=== PATIENT | female | born 1965 | race Caucasian/White ===

== ENCOUNTER → 2016-10-28 | Day surgery (SDC) | payer BC ==
[~2016-10-28] VITALS: Ht 154.9 cm; Wt 64.5 kg
[~2016-10-28] MED LIST: ASPI81TA81; ATOR20TA15 PO; BUPIVACAINE HCL PF 0.5% 30 ML VIAL ONE; CHLORHEXIDINE GLUCONATE 2 % 1 PACK (2 CLOTHS) TOPICAL PRN; DEXT 5%-NACL 0.45% 1000 ML INJ 1,000 ML IV SCH; GABA100C4 PO; IBUP800T23 PO; INSULIN HUMAN REGULAR 1,000 UNITS/10 ML VIAL SQ PRN; LACTATED RINGER'S 1000 ML IV PRN; LEVO.1 PO; METOPROLOL TARTRATE 25 MG TAB PO PRN; NOVORP2 SQ; ONDANSETRON HCL 4 MG/2 ML VIAL IV PUSH ONE; PROPOFOL 200 MG/20 ML AMP IV ONE; SODIUM CHLORID 0.9% 500 ML IV PRN; SODIUM CHLORIDE 0.9% FLUSH 5 ML FLUSH IVF PRN; SODIUM CHLORIDE 0.9% FLUSH 5 ML FLUSH IVF SCH; ceFAZolin 2 GM PREMIX 50 ML IV SCH; fentaNYL CITRATE 250 MCG/5 ML AMP ONE
[2016-10-28 06:50] VITALS: BP 151/78; PULSE 60; RESP 16; TEMP 97.9; O2SAT 100
[2016-10-28] MEDS: POVIDONE IODINE 5% (ANTISEPSIS KIT) 4 APPLICATIONS EACH NARE PRN ×2 (07:25→08:51)
[2016-10-28 07:30] LABS: HEMATOCRIT 42.8 % (35.0-46.0); MEAN CELL VOLUME 89.4 FL (80.0-100.0); MEAN CORPUSCULAR HEMOGLOBIN 29.2 PG (27.0-34.0); MEAN CORPUSCULAR HGB CONC 32.7 % (32.0-36.0); PLATELET COUNT 340 TH/MM3 (150-450); RED BLOOD COUNT 4.78 MIL/MM3 (4.00-5.30); RED CELL DISTRIBUTION WIDTH 12.8 % (11.6-17.2); REVIEW FLAG FINAL; WHITE BLOOD COUNT 8.9 TH/MM3 (4.0-11.0)
--- NOTE | 2016-10-28 07:52 | HP.UPD ---
H&P Update Date: Oct 28, 2016 Note The Pre-Admit History and Physical Examination regarding the above named patient was reviewed (including, but not limited to, vital signs, medications, allergies, co-morbid conditions), and upon re-examination it is noted that: Indicated with "X" x - the patient's condition has not significantly changed since the last examination. [] - the patient's condition has changed since the last examination. Changes: lOya Juan MD Oct 28, 2016 07:52
--- NOTE | 2016-10-28 07:59 | EKG ---
Date Performed: 10/28/2016 Time Performed: 07:22:08 PTAGE: 51 years EKG: SINUS BRADYCARDIA LOW QRS VOLTAGE IN PRECORDIAL LEADS BORDERLINE ECG NO PREVIOUS TRACING DOCTOR: Matt Oswald Interpretating Date/Time 10/28/2016 07:58:43
--- NOTE | 2016-10-28 09:19 | HHI.PR ---
Immediate Post Op Note Procedure Date: Oct 28, 2016 Pre Op Diagnosis: (1) Carpal tunnel syndrome Post Op Diagnosis: (1) Carpal tunnel syndrome Surgeon: Olya Juan Guide Dog Trainer(s): None. Procedure: Open release of the left carpal tunnel. Anesthesia: General Drains: None Tourniquet time (min at mmHg) 18 minutes at 220 mm Hg. Patient to: PACU Patient Condition: Good Date/Time of Procedure: SEE SURGICAL CARE RECORD Olya Juan MD Oct 28, 2016 09:19
[2016-10-28 10:20] VITALS: BP 138/71; PULSE 68; RESP 16; TEMP 97.1; O2SAT 99
--- NOTE | 2016-10-29 23:03 | MP ---
cc: ANGELO FORD MD DATE OF SURGERY 10/28/2016 PREOPERATIVE DIAGNOSIS Left carpal tunnel syndrome. POSTOPERATIVE DIAGNOSIS Left carpal tunnel syndrome PROCEDURE Open release of the left carpal tunnel. ANESTHESIA General SURGEON Dr. Arvin Ford INDICATIONS A 51-year-old female with severe left carpal tunnel syndrome. FINDINGS The patient did have a very tight tunnel. At the completion of the procedure, the tunnel was released and the nerve was mobilized from the roof of the carpal tunnel. Tourniquet time was 18 minutes. PROCEDURE IN DETAIL The patient was seen preoperatively where the site and side were identified and marked. The patient was then taken to the operating room, placed in a supine position. Her identity was checked against the arm band and the consent form, site and side confirmed, time-out called prior to beginning the procedure. The left upper extremity was prepped with Hibiclens and draped in the usual sterile fashion. The area to be incised was outlined with a marking pen as a longitudinal incision just at the ulnar side of the midline. Bupivacaine 0.5% plain was used to make a median nerve block and then the hand and upper extremity were exsanguinated and the tourniquet inflated to 220 mmHg. A #15 blade was used to make the incision down through the skin down through the subcutaneous tissue down to the palmar fascia. Distally a small hole was poked in the palmar fascia and using the ulnar artery as a guide Guyon's canal was released. The ulnar artery and nerve were retracted ulnarly. The median nerve retracted medially and, using the flexor tendon to the ring finger as a guide, the transverse carpal ligament was divided. Once the forearm fascia was reached, the scissor was kept in a slightly open position and using the push technique released for several centimeters into the distal forearm. The median nerve was then carefully from the roof of the tunnel and an epidurolysis was performed under loupe magnification. The wound was then copiously irrigated with saline and injected and additional bupivacaine and closed with running 4-0 nylon suture. The tourniquet was released after 18 minutes of tourniquet time. Pressure was applied. After several minutes, there was no evidence of any oozing. A dressing was applied using povidone-iodine ointment, Adaptic, Telfa, 4x4s and hand wrap. There was no tape touching the skin. The patient was then taken from the operating room to the recovery room in satisfactory condition having tolerated the procedure well. Postoperative instructions include keeping the arm elevated, keeping it clean and dry and returning in several days for follow up. MD CEASAR Vences/ /9:19 AM /10:49 PM
== END | disposition home or self-care (01) ==
LOC: PHSDC 06:14
PROVIDERS: ATTEND Specialist
DX: G56.02 Carpal tunnel syndrome, left upper limb (principal); I10 Essential (primary) hypertension; E10.9 Type 1 diabetes mellitus without complications; E78.5 Hyperlipidemia, unspecified; Z79.4 Long term (current) use of insulin; Z01.810 Encounter for preprocedural cardiovascular examination; Z01.818 Encounter for other preprocedural examination
CPT/HCPCS: 01810; 36415; 64721; 82948; 85027; 93005; J0690; J2405; J3010; J7120

== ENCOUNTER → 2016-11-11 | Day surgery (SDC) | payer BC ==
[~2016-11-11] VITALS: Ht 154.9 cm; Wt 66.0 kg
[~2016-11-11] MED LIST changes: +CEPH-460 PO; +DIOV40TA PO; +FAMOTIDINE 20 MG/2 ML VIAL ONE; +MIDAZOLAM HCL 2 MG/2 ML VIAL ONE; +OMEG300C5 PO; +POVIDONE IODINE 10% OINT 1 PACKET TOPICAL ONE; +POVIDONE IODINE 5% (ANTISEPSIS KIT) 4 APPLICATIONS EACH NARE PRN; +ePHEDrine/NS 25 MG/5 ML SYR IV ONE; -fentaNYL CITRATE 250 MCG/5 ML AMP ONE
[2016-11-11 08:15] VITALS: BP 152/80; PULSE 59; RESP 16; TEMP 97.7; O2SAT 99
--- NOTE | 2016-11-11 10:01 | HP.UPD ---
H&P Update Date: Nov 11, 2016 Note The Pre-Admit History and Physical Examination regarding the above named patient was reviewed (including, but not limited to, vital signs, medications, allergies, co-morbid conditions), and upon re-examination it is noted that: Indicated with "X" x - the patient's condition has not significantly changed since the last examination. [] - the patient's condition has changed since the last examination. Changes: Olya Juan MD Nov 11, 2016 10:01
[2016-11-11 11:35] VITALS: PULSE 82
--- NOTE | 2016-11-11 11:51 | HHI.PR ---
Immediate Post Op Note Procedure Date: Nov 11, 2016 Pre Op Diagnosis: (1) De Quervain's tenosynovitis, right (2) Trigger finger, right ring finger Post Op Diagnosis: (1) De Quervain's tenosynovitis, right (2) Trigger finger, right ring finger Surgeon: Olya Juan Academic Guidance Specialist(s): None Procedure: Release of the right first dorsal compartment. Release of the right ring trigger finger. Anesthesia: General Drains: None Tourniquet time (min at mmHg) 29 minutes at 220 mm Hg. Patient to: PACU Patient Condition: Good Date/Time of Procedure: SEE SURGICAL CARE RECORD Olya Juan MD Nov 11, 2016 11:51
[2016-11-11 12:15] VITALS: TEMP 97.9
[2016-11-11 12:50] VITALS: BP 144/66; PULSE 76; RESP 16; O2SAT 99
--- NOTE | 2016-11-13 06:48 | MP ---
cc: ANGELO FORD M.D. DATE OF SURGERY: 11/11/2016 PREOPERATIVE DIAGNOSIS 1. De Quervain's tenosynovitis of the right wrist. 2. Trigger finger of the right ring finger. POSTOPERATIVE DIAGNOSIS: 1. De Quervain's tenosynovitis of the right wrist. 2. Trigger finger of the right ring finger. PROCEDURE: 1. Release of the right first dorsal compartment. 2. Release of the right ring trigger finger. 3. Removal of sutures from the left hand. ANESTHESIA: General. SURGEON: Dr. Ford. INDICATIONS 51-year-old female with history of de Quervain's tenosynovitis which did not respond to nonoperative treatment. In addition the patient had a ring finger also which did not respond to nonoperative treatment. FINDINGS The first dorsal compartment was thickened approximately four times normal thickness. There was a separate tunnel for the extensor pollicis brevis. The ring finger, at the completion of the procedure, had full passive range of motion. TOURNIQUET TIME: 29 minutes. DESCRIPTION OF PROCEDURE: The patient was seen preoperatively where the sites and side were identified and marked. The patient was then taken to the operating room, placed in supine position. Her identity was checked against the arm band and the consent form, site and side confirmed, time-out called prior to beginning the procedure. The right upper extremity was prepped with Hibiclens and draped in the usual sterile fashion. The areas to be incised were outlined with a marking pen and a transverse incision 1.5 cm in length over the first dorsal compartment. In addition an oblique incision 1.5 cm in length was designed over the A1 minnie. The arm was exsanguinated and tourniquet inflated to 220 mmHg. A #15 blade was used to make an incision over the first dorsal compartment down to the skin, down to the subcutaneous tissue. Using a spread technique, superficial vessels were identified and retracted and under loupe magnification the first dorsal compartment was released by using the tendons of the first dorsal compartment as a guide. Once the first dorsal compartment was completely released, the tunnel was explored and a second tunnel was found for the extensor pollicis brevis. This was opened. The patient then had excellent range of motion without any encumbrance of the tendons. The wound was copiously irrigated with saline and closed with 4-0 Vicryl and then Dermabond to the skin. Attention was then turned to the ring finger where a new 15 blade was used make the oblique incision down through skin, down through the subcutaneous tissue. There were some Dupuytren's bands which were present in the incision and these were excised. The A1 minnie was then visualized and divided. The proximal palmar pulleys were also divided. The finger was put through a full range of motion and there was no encumbrance on any of the tendons and the wound was irrigated with saline and closed with a running 5-0 nylon suture. Bupivacaine 0.5% plain was injected into both operated areas. Once the wounds were closed and the areas had been injected the tourniquet was released after 29 minutes of tourniquet time. Pressure was applied. After several minutes there was no evidence of any swelling or oozing. A dressing was applied by placing povidone-iodine ointment, Adaptic and Telfa on the ring finger incision, Telfa and 4x4s over the first dorsal compartment release. A thumb spica splint was applied to keep the thumb and wrist in position of safety. The patient was then taken from the operating room to the recovery room in satisfactory condition having tolerated the procedure well. Postoperative instructions include keeping arm elevated, keeping it clean and dry and returning in several days for follow up. The patient was given a prescription of ibuprofen 100 mg every 8 hours as needed for pain. MD CEASAR Vences/KIA /11:53 AM /6:33 AM
== END | disposition home or self-care (01) ==
LOC: PHSDC 07:42
PROVIDERS: ATTEND Specialist
DX: M65.4 Radial styloid tenosynovitis [de Quervain] (principal); M65.341 Trigger finger, right ring finger; I10 Essential (primary) hypertension; E11.9 Type 2 diabetes mellitus without complications; E78.5 Hyperlipidemia, unspecified; Z79.82 Long term (current) use of aspirin; Z79.4 Long term (current) use of insulin; Z79.899 Other long term (current) drug therapy
CPT/HCPCS: 01810; 25000; 26055; 82948; J0690; J2250; J2405; J3010; J7120